=== PATIENT | female | born 1950 | race African-American/Black ===

== ENCOUNTER 2016-07-26 14:38 | Emergency (ER) ==
--- NOTE | 2016-07-26 15:11 | PROVIDER DOCUMENTATION ---
HPI-Musculoskeletal Pain/Inj - GENERAL Chief Complaint: Fall Stated Complaint: FALL Time Seen by Provider: 07/26/16 14:55 Source: patient, family - HX OF PRESENT ILLNESS-MUSKULOSKELTAL Nature of Presenting Problem: pt has had a stroke and has paralysis on the left side. When in the bathroom she fell today and has pain in her left humerus and shoulder. Review of Systems - Adult - REVIEW OF SYSTEMS - ADULT Constitutional: denies: chills, fever Eyes: denies: discharge, blurred vision Ears, Nose, Mouth & Throat: denies: ear pain, sinus problem, throat swelling Cardiovascular: denies: chest pain, irregular heart rate, syncope Respiratory: denies: chronic cough, shortness of breath Gastrointestinal: denies: hematemesis, frequent heartburn, rectal bleeding Genitourinary: denies: dysuria, frequent UTI's Musculoskeletal: reports: bone pain, other (left shoulder and humerus pain). denies: joint pain Neurological: reports: other (left sided paralysis from stroke) Psychiatric: reports: no symptoms reported Endocrine: denies: goiter, cold intolerance Hematologic/Lymphatic: denies: low blood count, lymphedema Allergic/Immunologic: denies: eczema, frequent infections, hives Past History - Adult - PAST MEDICAL HISTORY-ADULT Review of Records: reports: Nursing Assessment Review, Medications Reviewed - IMMUNIZATION STATUS Childhood Immunizations: See Nurse Assessment Flu Vaccine: See Nurse Assessment Physical Exam-Injury Related - Physical Exam-Injury Related Initial Vital Signs Reviewed: Yes General Appearance: appears well, alert, no apparent distress Eyes: PERRL/EOMI, pink conjunctivae Head, Ears, Nose, Mouth & Throat: normocephalic/atraumatic, moist mucous membranes, normal ENT inspection Neck: non-tender, full range of motion, supple, normal inspection Respiratory: chest non-tender, lungs clear, normal breath sounds, no pleuratic chest pain, no respiratory distress, no accessory muscle use Cardiovascular: normal peripheral pulses, regular rate, rhythm, no edema, no gallop, no JVD, no murmur Chest/Breast: no tenderness Abdominal Exam: normal bowel sounds, non tender, soft, no organomegaly, no pulsatile mass Lymphatic: no adenopathy Back Exam: normal inspection, no CVA tenderness, no vertebral tenderness Extremity: other (pain left humerus and shoulder, the left side has paralysis) 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, motor weakness, other (left side paralysisz) Psych/Mental Status: normal mood/affect, normal thought content, normal thought process, oriented x 3 Progress - PLAN OF CARE/RESULTS Progress/Plan/Lab Results: Orders Category Date Time Status HUMERUS-LEFT [RAD] Stat Exams 07/26/16 14:57 Completed SHOULDER-LEFT [RAD] Stat Exams 07/26/16 14:57 Completed Vital Signs Temp Pulse Resp BP Pulse Ox 07/26/16 14:43 98 F 91 H 18 184/79 97 No Known Allergies Allergy (Verified 04/22/16 16:02) Acetaminophen with Codeine [Tylenol with Codeine #3] 1 each PO Q4H PRN PRN #30 tablet 04/22/16 Amitriptyline [Elavil] 50 mg PO HS 04/22/16 Aspirin [Aspir-Low] 81 mg PO DAILY 04/22/16 Citalopram [Celexa] 20 mg PO DAILY 04/22/16 Glimepiride [Amaryl] 4 mg PO DAILY 04/22/16 Hydrochlorothiazide 12.5 mg PO DAILY 04/22/16 Hydroxyurea 500 mg PO DAILY 04/22/16 Insulin Glargine [Lantus] 40 unit SUBQ QAM 04/22/16 Isosorbide Mononitrate E.r. [Imdur] 60 mg PO DAILY 04/22/16 Linaclotide [Linzess] 145 mcg PO DAILY PRN PRN #14 capsule 04/22/16 Lisinopril [Zestril] 40 mg PO DAILY 04/22/16 Metoprolol Succinate E.r. [Toprol Xl] 100 mg PO DAILY 04/22/16 Omeprazole 20 mg PO DAILY 04/22/16 PRAVAstatin [Pravachol] 80 mg PO DAILY 04/22/16 Rivastigmine [Exelon] 1.5 mg PO DAILY 04/22/16 Tramadol/APAP [Ultracet 37.5MG/325Mg] 1 each PO Q6H PRN PRN 04/22/16 Departure - Departure Time of Disposition Order: 16:29 DIAGNOSIS: Humerus head fracture Qualifiers: Encounter type: initial encounter Fracture type: closed Laterality: left Qualified Code(s): S42.292A - Other displaced fracture of upper end of left humerus, initial encounter for closed fracture Disposition: HOME 01 Certified Medical Emergency: Emergent Condition: Stable Additional Instructions: fu with Dr Reinoso in orthopedics within 2 weeks to evaluate for healing ED Follow Up Instructions: You have been treated by a care provider in the Emergency Department. These instructions are being provided to you so you can have an understanding of how to care for yourself upon discharge. Upon discharge from the Emergency Department, you are responsible for making arrangements for follow-up care by a physician of your choice. Take all prescribed medications as directed. Return to the Emergency Department immediately for any new or worsening symptoms. You may call the Physician Referral phone number at [phone] to obtain a list of Physicians who are taking new patients. Prescriptions: Tramadol [Ultram] 50 mg PO Q8HR #60 tablet Referrals: Michel Clements MD [Primary Care Provider] -
--- NOTE | 2016-07-26 15:52 | Diag Imaging Result Document ---
PROCEDURE NAME: HUMERUS-LEFT - 07/26/2016 LEFT HUMERUS TWO VIEWS: FINDINGS: There is a fracture to the humeral head with mild compaction and 1 mm to 2 mm of displacement. No other fracture to the humerus. IMPRESSION: Fracture to the humerus.
--- NOTE | 2016-07-26 15:58 | Diag Imaging Result Document ---
PROCEDURE NAME: SHOULDER-LEFT - 07/26/2016 PLAIN RADIOGRAPH OF THE LEFT SHOULDER, 3 VIEWS: COMPARISON: None available. FINDINGS: There is a nondisplaced fracture involving the left humeral head/ neck with at least mild impaction. No other definite fracture, dislocation, or intrinsic osseous lesion is identified. Surrounding soft tissues are grossly unremarkable. IMPRESSION: Apparent mildly impacted fracture involving the left humeral head/ neck. [facility]
[2016-07-26 17:10] VITALS: BP 197/94
== END 2016-07-26 17:10 | disposition home or self-care (01) ==
LOC: P.ED 14:38
DX: S42.292A Other displaced fracture of upper end of left humerus, initial encounter for closed fracture (principal); M25.522 Pain in left elbow; M25.512 Pain in left shoulder; W19.XXXA Unspecified fall, initial encounter; I69.854 Hemiplegia and hemiparesis following other cerebrovascular disease affecting left non-dominant side; Z79.899 Other long term (current) drug therapy; Z79.4 Long term (current) use of insulin; Z79.82 Long term (current) use of aspirin
CPT/HCPCS: 99283